=== PATIENT | female | born 1955 | race Caucasian/White ===

== ENCOUNTER 2018-09-22 19:35 | Emergency (ER) | payer OTHER ==
[~2018-09-22] VITALS: Ht 157.5 cm; Wt 53.1 kg
[2018-09-22] MEDS ORDERED: IV RINGERS SOLUTION,LACTATED 1,000 ML IV SCH (19:46)
--- NOTE | 2018-09-22 19:46 | ED.ADGEN ---
Past History Past Medical History: Anxiety, CAD, CHF, COPD, Dementia, Depression, Diabetes, Heart Disease, Hypertension, Other Past Surgical History: Coronary Bypass Surgery Past Surgical History Lt. shoulder Adult General Chief Complaint Chief Complaint ".. No... No... No.." HPI HPI Patient is a 63 year old female who presents with mental status change and aggressive behavior. Patient is a [facility]. She has been a resident of the memory care unit since age [id number]. Recent mental status changes the past 24- 48 hrs. Increased behavioral issues. Patient has been aggressively with staff and other residents today. Patient hitting staff and other residents. .Disrobing. . Refusing medications, very agitated, very difficult to redirect. Patient has a history of encephalopathy, dysphagia, COPD, CHF, anxiety, diabetes, coronary artery disease , osteoarthritis, dementia, and deconditioning. Hx. of some falls. Patient normally follows with . Review of Systems Review of Systems Pt. no complaints- poor historian- [facility] pt. no complaints- just aggressive behavior mental status change. All other systems were reviewed and found to be within normal limits, except as documented in this note. Family History Family History Not currently available Current Medications Current Medications Current Medications Medications (Trade) Dose Ordered Sig/Alok Start Time Stop Time Status Last Admin Dose Admin Ceftriaxone Sodium 1 gm/ Sodium Chloride 50 ml @ 100 mls/hr 1X ONCE 09/22/18 22:30 09/22/18 22:59 DC 09/22/18 22:28 100 MLS/HR Ceftriaxone Sodium (Rocephin) 1 gm STK-MED ONCE 09/22/18 22:28 09/22/18 22:29 DC Furosemide (Lasix) 40 mg 1X ONCE 09/22/18 22:00 09/22/18 22:01 DC 09/22/18 22:09 40 MG Lactated Ringer's 1,000 ml @ 1,000 mls/hr Q1H 09/22/18 19:46 09/22/18 20:45 DC Sodium Chloride 50 ml @ As Directed STK-MED ONCE 09/22/18 22:28 09/22/18 22:29 DC Allergies Allergies Allergies Coded Allergies Type Severity Reaction Last Updated Verified hydrocodone Allergy Unknown 09/22/18 Yes Physical Exam Physical Exam Constitutional: no acute distress, chronic ill in appearance. [] HENT: Normocephalic, hematoma Rt. Parietal, bilateral external ears normal, oropharynx moist, no oral exudates, nose no active bleeding noted. Lt. orbit erythema- mild. Eyes: PERRLA, EOMI, conjunctiva mild injection lt. , no discharge. [] Neck: Normal range of motion, no tenderness, supple, no stridor. [] Cardiovascular:Heart rate regular rhythm, no murmur [PMI to Lt. Mitral area murmur. Lungs & Thorax: Bilateral breath sounds equal apex with scattered wheezes on auscultation []Mid line scar. Abdomen: Bowel sounds normal, soft, no tenderness, no masses, no pulsatile masses. [] Skin: Warm, dry, no erythema, no rash. [Poor turgor. Back: No tenderness, no CVA tenderness. [] Extremities: no cyanosis, no clubbing, ROM intact, no edema. [Arthritic changes. Scar Lt.shoulder. Neurologic: Alert to name, yells "NO" to requests, does move all ext. in attempts to hit, kick or bite staff, yells "Go away" with exam or repeat questions. Psychologic: Affect angry, anxious, judgement obviously limited.,- [facility] this is her baseline mental status- but behavioral changes such as hitting other residents and staff different. Current Patient Data Vital Signs Vital Signs Date Time Temp Pulse Resp B/P (MAP) Pulse Ox O2 Delivery O2 Flow Rate FiO2 09/22/18 22:52 76 20 117/62 (80) 98 Room Air 09/22/18 19:39 98.0 Lab Results Laboratory Tests Test 09/22/18 19:55 09/22/18 20:50 White Blood Count 10.7 x10^3/uL (4.0-11.0) Red Blood Count 3.48 x10^6/uL (3.50-5.40) L Hemoglobin 10.4 g/dL (12.0-15.5) L Hematocrit 31.9 % (36.0-47.0) L Mean Corpuscular Volume 92 fL (79-100) Mean Corpuscular Hemoglobin 30 pg (25-35) Mean Corpuscular Hemoglobin Concent 33 g/dL (31-37) Red Cell Distribution Width 16.5 % (11.5-14.5) H Platelet Count 458 x10^3/uL (140-400) H Neutrophils (%) (Auto) 64 % (31-73) Lymphocytes (%) (Auto) 26 % (24-48) Monocytes (%) (Auto) 8 % (0-9) Eosinophils (%) (Auto) 2 % (0-3) Basophils (%) (Auto) 0 % (0-3) Neutrophils # (Auto) 6.9 x10^3uL (1.8-7.7) Lymphocytes # (Auto) 2.8 x10^3/uL (1.0-4.8) Monocytes # (Auto) 0.8 x10^3/uL (0.0-1.1) Eosinophils # (Auto) 0.2 x10^3/uL (0.0-0.7) Basophils # (Auto) 0.0 x10^3/uL (0.0-0.2) Segmented Neutrophils % 60 % (35-66) Lymphocytes % 27 % (24-48) Monocytes % 7 % (0-10) Eosinophils % 5 % (0-5) Basophils % 1 % (0-3) Hypersegmented Neutrophils Present Toxic Granulation Slight Toxic Vacuolation Slight Dohle Bodies Few Platelet Estimate Increased (ADEQUATE) Giant Platelets Occ Hypochromasia Slight Anisocytosis Slight Microcytosis Slight Erythrocyte Sedimentation Rate 68 (0-25) H Prothrombin Time 9.9 SEC (9.4-11.4) Prothrombin Time INR 1.0 (0.9-1.1) PTT 23 SEC (23-33) Sodium Level 143 mmol/L (136-145) Potassium Level 3.7 mmol/L (3.5-5.1) Chloride Level 106 mmol/L (98-107) Carbon Dioxide Level 29 mmol/L (21-32) Anion Gap 8 (6-14) Blood Urea Nitrogen 16 mg/dL (7-20) Creatinine 0.9 mg/dL (0.6-1.0) Estimated GFR (Cockcroft-Gault) 63.7 Glucose Level 96 mg/dL (70-99) Calcium Level 8.6 mg/dL (8.5-10.1) Magnesium Level 1.8 mg/dL (1.8-2.4) Total Bilirubin 0.8 mg/dL (0.2-1.0) Direct Bilirubin 0.2 mg/dL (0.0-0.2) Aspartate Amino Transferase (AST) 32 U/L (15-37) Alanine Aminotransferase (ALT) 18 U/L (14-59) Alkaline Phosphatase 225 U/L (46-116) H Creatine Kinase 47 U/L (26-192) Troponin I Quantitative 0.062 ng/mL (0-0.055) H FQ-Lil-Y-Type Natriuretic Peptide 4423 pg/mL (0-124) H Total Protein 7.6 g/dL (6.4-8.2) Albumin 2.7 g/dL (3.4-5.0) L Urine Collection Type U cath Urine Color Yellow Urine Clarity Hazy Urine pH 6.0 Urine Specific Redgranite 1.010 Urine Protein 100 mg/dl (NEG-TRACE) Urine Glucose (UA) Neg mg/dL (NEG) Urine Ketones (Stick) Trace mg/dL (NEG) Urine Blood Neg (NEG) Urine Nitrite Neg (NEG) Urine Bilirubin Neg (NEG) Urine Urobilinogen Dipstick 0.2 mg/dL (0.2 mg/dL) Urine Leukocyte Esterase Neg (NEG) Urine RBC Occ /HPF (0-2) Urine WBC Occ /HPF (0-4) Urine Squamous Epithelial Cells Occ /LPF Urine Transitional Epithelial Cells Occ /LPF Urine Amorphous Sediment Present /HPF Urine Bacteria Few /HPF (0-FEW) Urine Opiates Screen Neg (NEG) Urine Methadone Screen Neg (NEG) Urine Barbiturates Neg (NEG) Urine Phencyclidine Screen Neg (NEG) Urine Amphetamine/Methamphetamine Neg (NEG) Urine Benzodiazepines Screen Pos (NEG) Urine Cocaine Screen Neg (NEG) Urine Cannabinoids Screen Neg (NEG) Urine Ethyl Alcohol Neg (NEG) EKG EKG My interpretation of EKG shows a sinus rhythm at 66 bpm. Has right axis deviation and bundle branch block. LVH. Nonspecific anterior lateral changes. [] Radiology/Procedures Radiology/Procedures My interpretation of chest x-ray shows no acute pneumothorax. Does have healing fractures and left chest wall. Does have a healing fracture right proximal humerus. Has hardware in left humerus. Midline coronary sternal wires. Has slightly and large cardiac silhouette. Chronic lung changes consistent with COPD. No free air in the diaphragm. My interpretation of CT of head shows right parietal scalp hematoma and a left subdural area of bleeding with no shift. Does have white matter disease changes and atrophy. Has a left maxillary and orbit fracture with what appears to be blood in maxillary sinus. My interpretation CT shows joint changes. No obvious fracture.. See formal reports when available. Will have radiology re-construct facial views. Course & Med Decision Making Course & Med Decision Making Pertinent Labs and Imaging studies reviewed. (See chart for details).. Discussed presentation, testing and tx. plan with Dr. Singleton neurosurgery- advised not available after mid night- recommended pt transfer to . Transfer team - accepts pt. to Dr. Garcia. [phone]. [] Final Impression Final Impression 1. Mental status change 2. Aggressive behavior[] 3. Right parietal scalp hematoma and left subdural hematoma 4. Left maxillary and lateral orbit fractures 5. Healing left rib fractures and right proximal humerus fracture 6. CHF BNP 4423 7. Anemia normocytic hemoglobin 10.4 8. Elevated sedimentation rate 68 9. Malnutrition 10. History of dementia 11. History of coronary artery disease 12. History of COPD Dragon Disclaimer Dragon Disclaimer This electronic medical record was generated, in whole or in part, using a voice recognition dictation system. Dragon Disclaimer This chart was dictated in whole or in part using Voice Recognition software in a busy, high-work load, and often noisy Emergency Department environment. It may contain unintended and wholly unrecognized errors or omissions. Discharge Summary Visit Information Final Diagnosis Problems Medical Problems: (1) Fracture, facial bones Status: Acute (2) Subdural hematoma Status: Acute Brief Hospital Course Allergies Allergies Coded Allergies Type Severity Reaction Last Updated Verified hydrocodone Allergy Unknown 09/22/18 Yes Vital Signs Vital Signs Date Time Temp Pulse Resp B/P (MAP) Pulse Ox O2 Delivery O2 Flow Rate FiO2 09/22/18 22:52 76 20 117/62 (80) 98 Room Air 09/22/18 19:39 98.0 Lab Results Laboratory Tests Test 09/22/18 19:55 09/22/18 20:50 White Blood Count 10.7 x10^3/uL (4.0-11.0) Red Blood Count 3.48 x10^6/uL (3.50-5.40) Hemoglobin 10.4 g/dL (12.0-15.5) Hematocrit 31.9 % (36.0-47.0) Mean Corpuscular Volume 92 fL (79-100) Mean Corpuscular Hemoglobin 30 pg (25-35) Mean Corpuscular Hemoglobin Concent 33 g/dL (31-37) Red Cell Distribution Width 16.5 % (11.5-14.5) Platelet Count 458 x10^3/uL (140-400) Neutrophils (%) (Auto) 64 % (31-73) Lymphocytes (%) (Auto) 26 % (24-48) Monocytes (%) (Auto) 8 % (0-9) Eosinophils (%) (Auto) 2 % (0-3) Basophils (%) (Auto) 0 % (0-3) Neutrophils # (Auto) 6.9 x10^3uL (1.8-7.7) Lymphocytes # (Auto) 2.8 x10^3/uL (1.0-4.8) Monocytes # (Auto) 0.8 x10^3/uL (0.0-1.1) Eosinophils # (Auto) 0.2 x10^3/uL (0.0-0.7) Basophils # (Auto) 0.0 x10^3/uL (0.0-0.2) Segmented Neutrophils % 60 % (35-66) Lymphocytes % 27 % (24-48) Monocytes % 7 % (0-10) Eosinophils % 5 % (0-5) Basophils % 1 % (0-3) Hypersegmented Neutrophils Present Toxic Granulation Slight Toxic Vacuolation Slight Dohle Bodies Few Platelet Estimate Increased (ADEQUATE) Giant Platelets Occ Hypochromasia Slight Anisocytosis Slight Microcytosis Slight Erythrocyte Sedimentation Rate 68 (0-25) Prothrombin Time 9.9 SEC (9.4-11.4) Prothromb Time International Ratio 1.0 (0.9-1.1) Activated Partial Thromboplast Time 23 SEC (23-33) Sodium Level 143 mmol/L (136-145) Potassium Level 3.7 mmol/L (3.5-5.1) Chloride Level 106 mmol/L (98-107) Carbon Dioxide Level 29 mmol/L (21-32) Anion Gap 8 (6-14) Blood Urea Nitrogen 16 mg/dL (7-20) Creatinine 0.9 mg/dL (0.6-1.0) Estimated GFR (Cockcroft-Gault) 63.7 Glucose Level 96 mg/dL (70-99) Calcium Level 8.6 mg/dL (8.5-10.1) Magnesium Level 1.8 mg/dL (1.8-2.4) Total Bilirubin 0.8 mg/dL (0.2-1.0) Direct Bilirubin 0.2 mg/dL (0.0-0.2) Aspartate Amino Transf (AST/SGOT) 32 U/L (15-37) Alanine Aminotransferase (ALT/SGPT) 18 U/L (14-59) Alkaline Phosphatase 225 U/L (46-116) Creatine Kinase 47 U/L (26-192) Troponin I Quantitative 0.062 ng/mL (0-0.055) AC-Oab-S-Type Natriuretic Peptide 4423 pg/mL (0-124) Total Protein 7.6 g/dL (6.4-8.2) Albumin 2.7 g/dL (3.4-5.0) Urine Collection Type U cath Urine Color Yellow Urine Clarity Hazy Urine pH 6.0 Urine Specific Redgranite 1.010 Urine Protein 100 mg/dl (NEG-TRACE) Urine Glucose (UA) Neg mg/dL (NEG) Urine Ketones (Stick) Trace mg/dL (NEG) Urine Blood Neg (NEG) Urine Nitrite Neg (NEG) Urine Bilirubin Neg (NEG) Urine Urobilinogen Dipstick 0.2 mg/dL (0.2 mg/dL) Urine Leukocyte Esterase Neg (NEG) Urine RBC Occ /HPF (0-2) Urine WBC Occ /HPF (0-4) Urine Squamous Epithelial Cells Occ /LPF Urine Transitional Epithelial Cells Occ /LPF Urine Amorphous Sediment Present /HPF Urine Bacteria Few /HPF (0-FEW) Urine Opiates Screen Neg (NEG) Urine Methadone Screen Neg (NEG) Urine Barbiturates Neg (NEG) Urine Phencyclidine Screen Neg (NEG) Urine Amphetamine/Methamphetamine Neg (NEG) Urine Benzodiazepines Screen Pos (NEG) Urine Cocaine Screen Neg (NEG) Urine Cannabinoids Screen Neg (NEG) Urine Ethyl Alcohol Neg (NEG) Brief Hospital Course Ms. Wseton is a 63 old female who presented with mental status and aggressive behavioral changes. Found to have Subdural Hematoma and Lt. facial and orbital fractures. Transfer to Dr. Garcia accepting transfer. Discharge Information Condition at Discharge: Stable Disposition/Orders: D/C to Another Facility Dischare Medications Current Medications Lactated Ringer's 1,000 ml @ 1,000 mls/hr Q1H IV ; Start 09/22/18 at 19:46; Stop 09/22/18 at 20:45; Status DC Furosemide (Lasix) 40 mg 1X ONCE IVP Last administered on 09/22/18at 22:09; Admin Dose 40 MG; Start 09/22/18 at 22:00; Stop 09/22/18 at 22:01; Status DC Ceftriaxone Sodium 1 gm/ Sodium Chloride 50 ml @ 100 mls/hr 1X ONCE IV Last administered on 09/22/18at 22:28; Admin Dose 100 MLS/HR; Start 09/22/18 at 22:30 ; Stop 09/22/18 at 22:59; Status DC Ceftriaxone Sodium (Rocephin) 1 gm STK-MED ONCE .ROUTE ; Start 09/22/18 at 22:25 ; Stop 09/22/18 at 22:26; Status DC Sodium Chloride 50 ml @ As Directed STK-MED ONCE .ROUTE ; Start 09/22/18 at 22: 28; Stop 09/22/18 at 22:29; Status DC Ceftriaxone Sodium (Rocephin) 1 gm STK-MED ONCE .ROUTE ; Start 09/22/18 at 22:28 ; Stop 09/22/18 at 22:29; Status DC LAYA BOYLE MD Sep 22, 2018 19:46
[2018-09-22 20:12] LABS: BASO % 0 % (0-3); EOS # 0.2 x10^3/uL (0.0-0.7); EOS % 2 % (0-3); HEMATOCRIT 31.9 % (36.0-47.0); HEMOGLOBIN 10.4 g/dL (12.0-15.5); LYMPH # 2.8 x10^3/uL (1.0-4.8); LYMPH % 26 % (24-48); MEAN CORPUSCULAR HEMOGLOBIN 30 pg (25-35); MEAN CORPUSCULAR HGB CONC 33 g/dL (31-37); MEAN CORPUSCULAR VOLUME 92 fL (79-100); MONO # 0.8 x10^3/uL (0.0-1.1); MONO % 8 % (0-9); NEUT # 6.9 x10^3uL (1.8-7.7); NEUT % 64 % (31-73); PLATELET COUNT 458 x10^3/uL (140-400); RED BLOOD COUNT 3.48 x10^6/uL (3.50-5.40); RED CELL DISTRIBUTION WIDTH 16.5 % (11.5-14.5); WHITE BLOOD COUNT 10.7 x10^3/uL (4.0-11.0)
[2018-09-22 20:36] LABS: ALBUMIN 2.7 g/dL (3.4-5.0); CALCIUM 8.6 mg/dL (8.5-10.1); CREATININE 0.9 mg/dL (0.6-1.0); DIRECT BILIRUBIN 0.2 mg/dL (0.0-0.2); GFR 63.7; MAGNESIUM 1.8 mg/dL (1.8-2.4); POTASSIUM 3.7 mmol/L (3.5-5.1); TOTAL BILIRUBIN 0.8 mg/dL (0.2-1.0); TOTAL PROTEIN 7.6 g/dL (6.4-8.2)
--- NOTE | 2018-09-22 20:43 | RAD ---
Chest radiograph 09/22/2018 7:00 PM INDICATION: Fall, COPD COMPARISON: None available TECHNIQUE: Portable upright frontal view of the chest is provided. FINDINGS: The cardiomediastinal silhouette is within normal limits. Median sternotomy changes are present. There are no pleural effusions. There is no pulmonary vascular congestion. There is no pneumothorax. The lungs are clear. Left shoulder arthroplasty is visualized. Remote partially healed and nonunited rib fractures are identified on the left. Remote right proximal humeral deformity is visualized likely sequela prior trauma. IMPRESSION: No acute cardiopulmonary process. Electronically signed by: Yaz Overton MD (09/22/2018 8:41 PM) [facility]
--- NOTE | 2018-09-22 21:02 | RAD ---
PQRS Compliance Statement: One or more of the following individualized dose reduction techniques were utilized for this examination: 1. Automated exposure control 2. Adjustment of the mA and/or kV according to patient size 3. Use of iterative reconstruction technique CT head and cervical spine without contrast 09/22/2018 8:19 PM INDICATION: Several falls, mental status change. COMPARISON: CT head May 19, 2018 TECHNIQUE: Multiple axial CT images of the head were obtained from skull base through the vertex without intravenous contrast. Multiple axial CT images of the cervical spine were obtained without intravenous contrast. Coronal and sagittal reformats are provided. FINDINGS: Head: Right parietal scalp hematoma measures 3.2 x 0.9 cm. The ventricles, sulci and basal cisterns are prominent compatible with mild generalized cerebral volume loss. Degree of ventriculomegaly appears more prominent compared to sulcal volume loss. Consideration may be given for normal pressure hydrocephalus. Low-attenuation in the periventricular white matter is suggestive of chronic small vessel ischemic changes. There is a left cerebral convexity subdural hygroma measuring 6 mm, new from the prior examination. No definite high attenuation is identified to suggest acute on chronic subdural hemorrhage. Of note, hyperacute blood may have similar appearance. There is no significant midline shift. There is no mass, mass effect. Moderate mucosal thickening of the left maxillary sinus. Chronic remodeling of the left anterior maxillary sinus wall may reflect sequela prior trauma. New fractures are identified involving the anterior and posterior lateral left maxillary kohler. Left lateral orbital wall fracture with mild displacement. There may be an inferior orbital wall fracture. Moderate mucosal thickening of the left sphenoid sinus. Orbits are normal in appearance without retrobulbar hematoma. Cervical spine: Alignment of the cervical spine is normal. Skull base is intact. Craniocervical junction is normal in appearance. Atlantoaxial articulation is normal. Vertebral body heights are maintained without evidence for acute fracture. There is moderate to advanced disc height loss at C5-C6. At C5-C6 there is a posterior disc osteophyte complex with mild facet arthropathy and moderate uncovertebral joint disease resulting in mild to moderate bilateral neuroforaminal stenosis and moderate spinal canal stenosis. There is no prevertebral soft tissue swelling. Thyroid gland is normal in appearance. Visualized portions of the lung apices are normal without evidence for suspicious pulmonary nodule or infiltrate. IMPRESSION: 1. Right parietal scalp hematoma is identified. There is a left subdural hygroma which is new from the prior examination. Correlate with fall history as hyperacute blood products may have similar appearance. Subdural collection measures 6 mm in maximal thickness without significant midline shift. 2. Comminuted fracture of the anterior left maxillary wall and posterolateral left maxillary wall with moderate opacification left maxillary sinus. There is a fracture with mild displacement involving the left lateral orbital wall. Suspect inferior left orbital wall fracture. 3. No acute fracture or malalignment of the cervical spine. Mild cervical spondylosis. FOR INTERNAL CODING PURPOSES Critical result: Findings discussed with LAYA BOYLE at 09/22/2018 8:58 PM. RESULT CODE: (C) Electronically signed by: Yaz Overton MD (09/22/2018 8:59 PM) [facility]
[2018-09-22 21:10] LABS: BARBITURATES NEG (NEG); BENZODIAZEPINES POS (NEG); CANNABINOIDS NEG (NEG); COCAINE NEG (NEG); METHADONE NEG (NEG); OPIATES NEG (NEG); PHENCYCLIDINE NEG (NEG)
[2018-09-22 21:10] LABS: % BASOS 1 % (0-3); % EOS 5 % (0-5); % LYMPHS 27 % (24-48); % MONOS 7 % (0-10); % SEGS 60 % (35-66); PLT ESTIMATE INCREASED (ADEQUATE)
[2018-09-22 21:11] LABS: ANISOCYTOSIS SLIGHT; HYPERSEGS PRESENT; HYPOCHROMIA SLIGHT; MICROCYTOSIS SLIGHT; TOXIC GRANULATION SLIGHT; TOXIC VACUOLATION SLIGHT
[2018-09-22 21:19] LABS: BILIRUBIN,URINE NEG (NEG); CLARITY,URINE HAZY; COLOR,URINE YELLOW; GLUCOSE,URINE NEG (NEG)
[2018-09-22 21:20] LABS: AMORPHOUS SEDIMENT,UR PRESENT /HPF; BACTERIA,URINE FEW /HPF (0-FEW); NITRITE,URINE NEG (NEG); RBC,URINE OCC /HPF (0-2); SQUAMOUS EPITHELIAL CELL,UR OCC /LPF; UROBILINOGEN,URINE 0.2 mg/dL (0.2 mg/dL); WBC,URINE OCC /HPF (0-4)
[2018-09-22 21:22] LABS: AMPHETAMINE/METHAMPHETAMINE NEG (NEG)
[2018-09-22 21:25] LABS: SEDIMENTATION RATE 68 (0-25)
[2018-09-22] MEDS ORDERED: FUROSEMIDE 40 MG/4 ML VIAL IVP ONE (22:00)
[2018-09-22] MEDS ORDERED: cefTRIAXone SODIUM 1 GM VIAL ONE ×2 (22:25→22:28)
[2018-09-22] MEDS ORDERED: IV NORMAL SALINE 50ML 50 ML ONE (22:28)
[2018-09-22 22:52] VITALS: BP 117/62
--- NOTE | 2018-09-23 11:35 | EKG ---
[address] [address] Test Date: 2018-09-22 Test Time: 20:08:58 Pat Name: GEOFFREY YING Department: Room: Gender: F Medical Office Secretary: : 1955 Requested By: LAYA BOYLE Order Number: [id number] Reading MD: Michael Rasmussen Measurements Intervals [place] Rate: 66 P: 56 [place]: 160 QRS: 117 QRSD: 114 T: 142 QT: 456 QTc: 480 Interpretive Statements SINUS RHYTHM ABNORMAL RIGHT AXIS DEVIATION INCOMPLETE RIGHT BUNDLE BRANCH BLOCK NONSPECIFIC ST-T WAVE CHANGES. POSSIBLE OLD INFERIOR INFARCT Electronically Signed On 09-27-2018 10:39:32 [employer] PROCESS[employer] TECHNICIAN by Michael Rasmussen
== END 2018-09-22 23:00 | disposition short-term general hospital (02) ==
LOC: ER 19:35
DX: R41.82 Altered mental status, unspecified (principal); R46.89 Other symptoms and signs involving appearance and behavior; S02.19XA Other fracture of base of skull, initial encounter for closed fracture; S02.40DA Maxillary fracture, left side, initial encounter for closed fracture; S42.201A Unspecified fracture of upper end of right humerus, initial encounter for closed fracture; S22.32XA Fracture of one rib, left side, initial encounter for closed fracture; S06.5X0A Traumatic subdural hemorrhage without loss of consciousness, initial encounter; S00.03XA Contusion of scalp, initial encounter; R70.0 Elevated erythrocyte sedimentation rate; D64.9 Anemia, unspecified; I50.9 Heart failure, unspecified; E46 Unspecified protein-calorie malnutrition; F03.90 Unspecified dementia, unspecified severity, without behavioral disturbance, psychotic disturbance, mood disturbance, and anxiety; I25.810 Atherosclerosis of coronary artery bypass graft(s) without angina pectoris; J44.9 Chronic obstructive pulmonary disease, unspecified; F41.9 Anxiety disorder, unspecified; F32.9 Major depressive disorder, single episode, unspecified; I11.0 Hypertensive heart disease with heart failure; E11.9 Type 2 diabetes mellitus without complications; Z68.21 Body mass index [BMI] 21.0-21.9, adult; Z88.5 Allergy status to narcotic agent; W18.39XA Other fall on same level, initial encounter; Y93.89 Activity, other specified; Y92.89 Other specified places as the place of occurrence of the external cause; Y99.8 Other external cause status
CPT/HCPCS: 36415; 70450; 71045; 72125; 80048; 80076; 80307; 81001; 82550; 83735; 83880; 84443; 84484; 85007; 85025; 85610; 85651; 85730; 86592; 93005; 96365; 96375; 99285; J0696; J1940